=== PATIENT | female | born 2000 | race Caucasian/White ===

== ENCOUNTER → 2018-08-14 | Outpatient (CLI) | payer BC, OTHER | LOC: OD 10:36 | PROVIDERS: ATTEND Family Medicine | DX: J02.9 Acute pharyngitis, unspecified (principal) | CPT/HCPCS: 87070; 87880 ==

== ENCOUNTER 2018-09-09 07:46 | Day surgery (SDC) | payer BC, OTHER ==
[~2018-09-09 07:46] MED LIST: AMPICILLIN SOD INJ 1 GM VIAL IV PRN; OXYMETAZOLINE HCL 0.05% NASAL SPRAY 15 ML BOTTLE ONE
[2018-09-09] MEDS ORDERED: AMPICILLIN SOD INJ 1 GM VIAL ONE (07:52)
[2018-09-09] MEDS ORDERED: WATER FOR INJECTION,STERILE 10 ML SDV ONE (08:10)
[2018-09-09] MEDS ORDERED: AMPICILLIN SODIUM 2 GM in NORMAL SALINE 100 ML IV PRN (08:14)
[2018-09-09] MEDS ORDERED: MIDAZOLAM 2 MG/2 ML INJ ONE (08:27)
[2018-09-09] MEDS ORDERED: ONDANSETRON HCL INJ/PF 4 MG/2 ML SDV ONE (08:27)
[2018-09-09] MEDS ORDERED: ACETAMINOPHEN 1,000 MG/100 ML RTUPB IV ONE (08:28)
[2018-09-09] MEDS ORDERED: SUCCINYLCHOLINE CHLORIDE INJ 200 MG/10 ML VIAL ONE (08:28)
[2018-09-09] MEDS ORDERED: PROPOFOL INJ 200 MG/20 ML VIAL IV ONE (08:28)
[2018-09-09] MEDS ORDERED: HYDROMORPHONE HCL INJ/PF 2 MG/ML AMPULE ONE (08:28)
[2018-09-09] MEDS ORDERED: DEXAMETHASONE SOD PHOS INJ 10 MG/1 ML VIAL ONE (08:28)
--- NOTE | 2018-09-09 08:33 | EKG REPORT ---
SEVERITY:- NORMAL ECG - SINUS RHYTHM : Confirmed by: German Matute 09-Sep-2018 08:32:34
--- NOTE | 2018-09-09 09:37 | SURGICARE OPERATIVE REPORT E ---
[facility] Operative Report NAME: ROSA NEWTON AGE: 17Y DATE OF SURGERY: 09/09/2018 ROOM: HISTORY: A 17-year-old female with a history of chronic tonsillitis. She presents today for a tonsillectomy. Informed consent was obtained from the patient. PREOPERATIVE DIAGNOSIS: CHRONIC TONSILLITIS. POSTOPERATIVE DIAGNOSIS: CHRONIC TONSILLITIS. OPERATION: Tonsillectomy. SURGEON: TRACEY MARTINEZ MD ANESTHESIA: General by endotracheal intubation. DESCRIPTION OF PROCEDURE: After receiving informed consent from the patient, she was taken to the operating room and placed supine on the operating table. After successful induction and intubation by Anesthesia the patient was then turned 90-degrees and placed in Trendelenburg. Shoulder roll placed, head drape placed, McIvor mouth gag inserted atraumatically into the oral cavity. This was then opened up. The soft palate was palpated and found to be normal. Red catheters inserted down each nasal cavity bilaterally to elevate the soft palate. Right tonsil was grasped with a tonsil tenaculum, pulled medially, dissected free from its tonsillar fossa using Bovie electrocautery. A similar procedure was done on the left side. Both tonsils were removed. Next, hemostasis was obtained with suction and Bovie electrocautery. Next, the oral cavity, oropharynx were irrigated with copious amounts of normal saline. No bleeding was noted. An orogastric tube inserted into stomach. Gastric contents were aspirated. The McIvor mouth gag was then let down and reopened, no bleeding was noted. This along with along with red catheters were removed from the patient. Patient given back to anesthesia, successfully extubated. Patient without complications. Estimated blood loss is 10 mL. Fluids about 500 mL crystalloid. Patient was then transferred to the postanesthesia care unit in stable condition with spontaneous respiration and no complication. DICTATING PHYSICIAN: TRACEY MARTINEZ M.D. [id number] PHY#: [id number] ID: [id number] JOB#: [id number] ACCT: [id number] cc:TARCEY MARTINEZ MD >
== END 2018-09-09 10:30 | disposition home or self-care (01) ==
LOC: SC 07:46
PROVIDERS: ATTEND Otolaryngology
DX: J35.01 Chronic tonsillitis (principal); J45.909 Unspecified asthma, uncomplicated; I10 Essential (primary) hypertension; Z79.899 Other long term (current) drug therapy; Z79.84 Long term (current) use of oral hypoglycemic drugs; Z79.1 Long term (current) use of non-steroidal anti-inflammatories (NSAID); Z88.8 Allergy status to other drugs, medicaments and biological substances
CPT/HCPCS: 93005; 88304 ×2; 93010; 42826; J0290 ×2; J2250; J1170; J3490; J0330; J2405; J2704; J1100; J0131; 170

== ENCOUNTER 2020-01-18 06:14 | Emergency (ER) | payer BC, MEDICAID, OTHER ==
--- NOTE | 2020-01-18 06:46 | ER Document Report ---
ED GI/ - General Chief Complaint: Vomiting/Diarrhea Stated Complaint: VOMITING/DIARRHEA Time Seen by Provider: 01/18/20 06:40 Primary Care Provider: ENEDELIA JONES MD [Primary Care Provider] - Follow up as needed Mode of Arrival: Ambulatory Information source: Patient Notes: 19-year-old woman presents to the emergency department complaint of nausea vomiting and diarrhea which began early this morning. She states that she had been feeling fine yesterday does not know of any precipitating factors. No prior history of GI problems and otherwise healthy 19-year-old with the exception of asthma. She has not taken any medications complains of cramping abdominal pain and nausea at this time. She has been afebrile and denies any hematemesis or hematochezia. TRAVEL OUTSIDE OF THE [place] IN LAST 30 DAYS: No - Related Data Allergies/Adverse Reactions: montelukast [From Singulair] Allergy (Verified 09/05/18 10:52) Hives prednisone Adverse Reaction (Verified 01/18/20 06:54) Past Medical History - General Information source: Patient - Social History Smoking Status: Never Smoker Family History: Reviewed & Not Pertinent Patient has suicidal ideation: No Patient has homicidal ideation: No - Past Medical History Cardiac Medical History: Reports: Hx Hypertension Denies: Hx Heart Attack Pulmonary Medical History: Denies: Hx Asthma Neurological Medical History: Denies: Hx Cerebrovascular Accident, Hx Seizures GI Medical History: Denies: Hx Hepatitis, Hx Hiatal Hernia, Hx Ulcer Infectious Medical History: Denies: Hx Hepatitis Past Surgical History: Denies: Hx Hysterectomy, Hx Mastectomy, Hx Open Heart Surgery, Hx Pacemaker Review of Systems - Review of Systems Notes: Constitutional: Negative for fever. HENT: Negative for sore throat. Eyes: Negative for visual changes. Cardiovascular: Negative for chest pain. Respiratory: Negative for shortness of breath. Gastrointestinal: + Cramping abdominal pain, +vomiting, +diarrhea. Genitourinary: Negative for dysuria. Musculoskeletal: Negative for back pain. Skin: Negative for rash. Neurological: Negative for headaches, weakness or numbness. 10 point ROS negative except as marked above and in HPI. Physical Exam - Vital signs Vitals: Temp Pulse Resp BP Pulse Ox 98.1 F 117 H 16 143/85 H 99 01/18/20 06:23 01/18/20 06:23 01/18/20 06:23 01/18/20 06:23 01/18/20 06:23 - Notes Notes: PHYSICAL EXAMINATION: Physical Exam: General: Well-nourished emen-vzbpqrsyl-ckod-old female in no acute distress HEENT: NC/AT, pupils equal round and reactive to light, MM moist,nares clear, oropharynx clear, airway patent Neck: supple, no adenopathy, no masses. Good range of motion Lungs: clear, no wheezing, no rales no rhonchi CVS: Regular rate and rhythm no murmur gallop or rub Abdomen: Soft, active, mild mid periumbilical tenderness, no guarding, no rebound, no masses, no hepatosplenomegaly Ext: No edema, clubbing or cyanosis. Neuro: Alert and responsive, moving all 4 extremities on command, cranial nerves intact, no focal findings Skin: Intact no open lesions, no rash PSYCH: Normal mood, normal affect. Course - Re-evaluation Re-evalutation: 01/18/20 09:23 19-year-old woman history of nausea vomiting diarrhea x1 day. She is given IV normal saline, Zofran and Toradol. Symptoms are markedly improved patient is no w taking oral liquids without difficulty. She is being discharged home with a viral enteritis and told to continue to push fluids use Zofran for nausea and avoid taking medications for diarrhea. Patient acknowledges an understanding of this plan and is being discharged at this time. - Vital Signs Vital signs: Temp Pulse Resp BP Pulse Ox 98.5 F 90 16 124/70 100 01/18/20 09:35 01/18/20 09:35 01/18/20 09:35 01/18/20 09:35 01/18/20 09:35 - Laboratory Result Diagrams: 01/18/20 07:02 01/18/20 07:02 Laboratory results interpreted by me: 01/18/20 01/18/20 01/18/20 07:02 07:02 08:30 Hgb 10.8 L Hct 33.6 L MCV 72 L MCH 22.9 L RDW 19.6 H Seg Neuts % (Manual) 93 H Band Neutrophils % 1 L Lymphocytes % (Manual) 1 L Abs Neuts (Manual) 9.6 H Abs Lymphs (Manual) 0.1 L Chloride 109 H Glucose 120 H Urine Ketones 80 H I have reviewed laboratory data and used this information for the treatment decisions regarding the patient. Discharge - Discharge Clinical Impression: Viral enteritis, Nausea vomiting and diarrhea Condition: Good Disposition: HOME, SELF-CARE Instructions: Antinausea Medication ([facility]), Diarrhea, Nonspecific ([facility]), Vomiting ([facility]) Additional Instructions: You are diagnosed with viral enteritis, please use the Zofran for nausea, push fluids, avoid heavy foods, meats, fried foods, dairy until the diarrhea has resolved. Follow-up with your primary care doctor as needed, return to the emergency department if your symptoms are worsening or if you have other concerns. HOME CARE INSTRUCTIONS & INFORMATION: Thank you for choosing us for your medical needs. We hope you're satisfied with the care you received. After you leave, you must properly care for your problem and, at the same time, observe its progress. Any condition can change. Some illnesses can change rapidly over hours or days. If your condition worsens, return to the Emergency Department or see your physician promptly. ABOUT YOUR X-RAYS AND EKG'S: If you had an EKG or X-rays taken, they have been read by the Emergency Physician. The X-rays and EKG's will also be read by a Radiologist or Cvor Nurse within 24 hours. If discrepancies are noted, you will be notified by telephone. Please be certain the ED has a correct telephone number & address where you can be reached. Also, realize that some fractures or abnormalities do not show up on initial X-rays. If your symptoms continue, see your physician. ABOUT YOUR LABORATORY TEST: If you had laboratory tests, the results have been reviewed by the Emergency Physician. Some test results (for example cultures) may not be available for several days. You will be contacted if any test result shows you need additional treatment. Please be certain the ED has a correct telephone number and address where you can be reached. ABOUT YOUR MEDICATIONS: You will receive instructions on how to take your medicine on the prescription label you receive. Additional information may be provided by the Pharmacy. If you have questions afterwards, call the ED for clarification or further instructions. Some prescribed medications may cause drowsiness. Do not perform tasks such as driving a car or operating machinery without consulting your Pharmacist. If you feel you need a refill of pain medication, your condition will need re-evaluation. Please do not call for a re fill of any medication. ABOUT YOUR SIGNATURE: Signature of this document acknowledges to followin. Understanding that you received emergency treatment and that you may be released before al medical problems are known or treated. Please be certain the ED has a correct phone number & address where you can be reached. 2. Acknowledgement that you will arrange for follow-up care as recommended. 3. Authorization for the Emergency Physician to provide information to your follow-up Physician in order to maximize your care. AT ANY TIME, IF YOUR SYMPTOMS CHANGE SIGNIFICANTLY OR WORSEN OR YOU DEVELOP NEW SYMPTOMS, RETURN TO THE EMERGENCY DEPARTMENT IMMEDIATELY FOR RE-EVALUATION. OUR GOAL IS TO PROVIDE EXCELLENT MEDICAL CARE! WE HOPE THAT WE HAVE MET YOUR EXPECTATIONS DURING YOUR EMERGENCY DEPARTMENT VISIT AND THAT YOU FEEL YOU HAVE RECEIVED EXCELLENT CARE! Prescriptions: Ondansetron [Zofran Odt 4 mg Tablet] 1 - 2 tab PO Q4H PRN #15 tab.rapdis PRN Reason: For Nausea/Vomiting Referrals: ENEDELIA JONES MD [Primary Care Provider] - Follow up as needed
[2020-01-18] MEDS ORDERED: NORMAL SALINE 1000 ML 1,000 ML IV ONE (06:48)
[2020-01-18] MEDS ORDERED: ONDANSETRON HCL INJ/PF 4 MG/2 ML SDV IV ONE (06:49)
[2020-01-18] MEDS ORDERED: KETOROLAC TROMETHAMINE INJ/PF 30 MG/1 ML SDV IV ONE (06:49)
[2020-01-18 07:44] LABS: ALKALINE PHOSPHATASE 69 U/L (38-126); ANION GAP 6 (5-19); ASPARTATE AMINO TRANSFERASE 17 U/L (14-36); BILIRUBIN,TOTAL 0.5 mg/dL (0.2-1.3); BLOOD UREA NITROGEN 13 mg/dL (7-20); CALCIUM 8.5 mg/dL (8.4-10.2); CARBON DIOXIDE 24 mmol/L (22-30); CHLORIDE 109 mmol/L (98-107); GLUCOSE 120 mg/dL (75-110); TOTAL PROTEIN 7.1 g/dL (6.3-8.2)
[2020-01-18 07:51] LABS: HEMATOCRIT 33.6 % (36.0-47.0); HEMOGLOBIN 10.8 g/dL (12.0-15.5); MEAN CORPUSCULAR HEMOGLOBIN 22.9 pg (27.0-33.4); MEAN CORPUSCULAR VOLUME 72 fl (80-97); PLATELET COUNT 190 10^3/uL (150-450); RED BLOOD COUNT 4.69 10^6/uL (3.72-5.28); RED CELL DISTRIBUTION WIDTH 19.6 % (11.5-14.0); WHITE BLOOD COUNT 10.2 10^3/uL (4.0-10.5)
[2020-01-18 07:57] LABS: ABSOLUTE LYMPHOCYTES# (MANUAL) 0.1 10^3/uL (0.5-4.7); ABSOLUTE MONOCYTES # (MANUAL) 0.5 10^3/uL (0.1-1.4); BAND NEUTROPHILS % (MANUAL) 1 % (3-5); BASOPHILS % (MANUAL) 0 % (0-2); EOSINOPHILS % (MANUAL) 0 % (0-6); LYMPHOCYTES % (MANUAL) 1 % (13-45); MONOCYTES % (MANUAL) 5 % (3-13); SEGMENTED NEUTROPHILS % (MAN) 93 % (42-78); TOTAL CELLS COUNTED 100
[2020-01-18 07:58] LABS: ANISOCYTOSIS 2+; OVALOCYTES SLIGHT; PLATELET COMMENT ADEQUATE; TEAR DROP CELLS SLIGHT; TOXIC GRANULATION SLIGHT; TOXIC VACUOLATION PRESENT
[2020-01-18 08:46] LABS: APPEARANCE,URINE SLIGHTLY-CLOUDY; BILIRUBIN,URINE NEGATIVE (NEGATIVE); COLOR,URINE YELLOW; GLUCOSE, URINE NEGATIVE (NEGATIVE); KETONES,URINE 80 mg/dL (NEGATIVE); LEUKOCYTE ESTERASE,URINE NEGATIVE (NEGATIVE); NITRITE,URINE NEGATIVE (NEGATIVE); PROTEIN,URINE NEGATIVE (NEGATIVE); URINE SPECIFIC GRAVITY 1.021; UROBILINOGEN,URINE NEGATIVE mg/dL (<2.0)
[2020-01-18 09:40] VITALS: BP 124/70
[2020-01-18 13:00] LABS: AMYLASE 40 U/L (30-110)
== END 2020-01-18 09:40 | disposition home or self-care (01) ==
LOC: ER 06:14
DX: A08.4 Viral intestinal infection, unspecified (principal); R19.7 Diarrhea, unspecified; R11.2 Nausea with vomiting, unspecified; R10.9 Unspecified abdominal pain; I10 Essential (primary) hypertension
CPT/HCPCS: 99284; 96361; 96374; 96375; 36415; 82150; 83690; 85025; 80053; 81001; J1885; J2405; J7030

== ENCOUNTER 2020-08-30 12:25 | Outpatient (CLI) | payer MEDICAID ==
[2020-08-30 13:30] LABS: APPEARANCE,URINE CLOUDY; BILIRUBIN,URINE NEGATIVE (NEGATIVE); COLOR,URINE YELLOW; GLUCOSE, URINE NEGATIVE (NEGATIVE); KETONES,URINE NEGATIVE (NEGATIVE); LEUKOCYTE ESTERASE,URINE MODERATE (NEGATIVE); NITRITE,URINE NEGATIVE (NEGATIVE); PROTEIN,URINE 30 mg/dL (NEGATIVE); UROBILINOGEN,URINE NEGATIVE mg/dL (<2.0)
[2020-08-30 13:46] LABS: ABSOLUTE LYMPHOCYTES (AUTO) 1.2 10^3/uL (0.5-4.7); ABSOLUTE MONOCYTES (AUTO) 0.4 10^3/uL (0.1-1.4); ABSOLUTE NEUT (AUTO) 6.6 10^3/uL (1.7-8.2); BASOPHILS % (AUTO) 0.2 % (0-2); EOSINOPHILS % (AUTO) 0.5 % (0-6); HEMATOCRIT 32.3 % (36.0-47.0); HEMOGLOBIN 10.7 g/dL (12.0-15.5); LYMPHOCYTES % (AUTO) 14.7 % (13-45); MEAN CORPUSCULAR HEMOGLOBIN 25.6 pg (27.0-33.4); MEAN CORPUSCULAR VOLUME 78 fl (80-97); MONOCYTES % (AUTO) 4.5 % (3-13); PLATELET COUNT 177 10^3/uL (150-450); RED BLOOD COUNT 4.17 10^6/uL (3.72-5.28); RED CELL DISTRIBUTION WIDTH 21.5 % (11.5-14.0); SEGMENTED NEUTROPHILS % (AUTO) 80.1 % (42-78); TOTAL CELLS COUNTED % (AUTO) 100 %; WHITE BLOOD COUNT 8.2 10^3/uL (4.0-10.5)
[2020-08-30 14:02] LABS: ALBUMIN 3.1 g/dL (3.5-5.0); ALKALINE PHOSPHATASE 95 U/L (38-126); ANION GAP 10 (5-19); ASPARTATE AMINO TRANSFERASE 18 U/L (14-36); BILIRUBIN,DIRECT 0.2 mg/dL (0.0-0.4); BILIRUBIN,TOTAL 0.4 mg/dL (0.2-1.3); BLOOD UREA NITROGEN 7 mg/dL (7-20); CALCIUM 8.7 mg/dL (8.4-10.2); CARBON DIOXIDE 20 mmol/L (22-30); CHLORIDE 107 mmol/L (98-107); GLUCOSE 125 mg/dL (75-110); POTASSIUM 3.5 mmol/L (3.6-5.0); URIC ACID 4.7 mg/dL (2.5-6.2)
[2020-08-30 14:07] LABS: URINE AMPHETAMINES SCREEN NEGATIVE; URINE BARBITURATES SCREEN NEGATIVE; URINE BENZODIAZEPINES SCREEN NEGATIVE; URINE COCAINE SCREEN NEGATIVE; URINE METHADONE SCREEN NEGATIVE; URINE PHENCYCLIDINE SCREEN NEGATIVE
[2020-08-30 14:11] LABS: UR PRO/CREAT RATIO RESULT 0.1 mg/mg (0.0-0.2); URINE CREATININE 238.3 mg/dL (16-327); URINE MARIJUANA (THC) SCREEN NEGATIVE; URINE PROTEIN 15.5 mg/dL (<12)
--- NOTE | 2020-08-30 14:42 | Non Stress Test Report ---
Non Stress Test Datetime Report Generated by CPN: 08/30/2020 14:41 DEMOGRAPHIC EGA NST: 37.0 INDICATION Indication for Study (NST) Other: IUP at 37.0 VITAL SIGNS Temperature - NST: 98.9 Pulse - NST: 73 RESP - NST: 18 NBPSYS NST: 129 NBPDIA NST: 59 MONITORING Monitor Explained: Monitor Explained; Test Explained; Patient Verbalized Understanding Time on Monitor: 08/30/2020 12:39 Time off Monitor: 08/30/2020 14:30 NST Duration: 111 NST INTERVENTIONS NST Interventions: PO Hydration Physician Notified NST: A. Zafar, CNM BABY A: [id number] BABY A Movement : Present Contraction Frequency : x1 FHR Baseline : 135 Accelerations : 15X15 Decelerations : None Variability : Moderate 6-25bpm NST Review: Meets Criteria for Reactive NST NST Review and Verified By : Jason RN NST Results: Reactive NST REPORT Report Trigger: Send Report
== END 2020-08-30 14:42 | disposition home or self-care (01) ==
LOC: LC 12:25
PROVIDERS: ATTEND Obstetrics & Gynecology
DX: O16.3 Unspecified maternal hypertension, third trimester (principal); Z3A.37 37 weeks gestation of pregnancy
CPT/HCPCS: 36415; 59025; 80053; 80307; 81005; 82570; 83615; 84156; 84550; 85025; 87086

== ENCOUNTER 2020-09-05 20:26 | Inpatient (IN) | payer MEDICAID ==
[2020-09-05] MEDS ORDERED: RINGERS SOLUTION,LACTATED 1,000 ML IV PRN (20:41)
[2020-09-05] MEDS ORDERED: ZOLPIDEM TARTRATE 5 MG TABLET PO PRN (20:41)
[2020-09-05] MEDS ORDERED: MAG HYDROX/AL HYDROX/SIMETH SUSP 30 ML UDCUP PO PRN (20:41)
[2020-09-05] MEDS ORDERED: DINOPROSTONE 10 MG VAGINAL INSERT.SR PV ONE (20:41)
[2020-09-05] MEDS ORDERED: ACETAMINOPHEN 325 MG TABLET PO PRN (20:41)
[2020-09-05] MEDS ORDERED: RINGERS SOLUTION,LACTATED 300 ML IV ONE (20:41)
[2020-09-05 21:10] LABS: ABSOLUTE LYMPHOCYTES (AUTO) 1.3 10^3/uL (0.5-4.7); ABSOLUTE MONOCYTES (AUTO) 0.5 10^3/uL (0.1-1.4); ABSOLUTE NEUT (AUTO) 7.7 10^3/uL (1.7-8.2); BASOPHILS % (AUTO) 0.3 % (0-2); EOSINOPHILS % (AUTO) 0.2 % (0-6); HEMATOCRIT 32.3 % (36.0-47.0); HEMOGLOBIN 11.1 g/dL (12.0-15.5); LYMPHOCYTES % (AUTO) 13.3 % (13-45); MEAN CORPUSCULAR HEMOGLOBIN 26.2 pg (27.0-33.4); MEAN CORPUSCULAR HGB CONC 34.4 g/dL (32.0-36.0); MEAN CORPUSCULAR VOLUME 76 fl (80-97); MONOCYTES % (AUTO) 5.7 % (3-13); PLATELET COUNT 180 10^3/uL (150-450); RED BLOOD COUNT 4.24 10^6/uL (3.72-5.28); SEGMENTED NEUTROPHILS % (AUTO) 80.5 % (42-78); TOTAL CELLS COUNTED % (AUTO) 100 %; WHITE BLOOD COUNT 9.6 10^3/uL (4.0-10.5)
[2020-09-05 21:20] LABS: APPEARANCE,URINE CLOUDY; BILIRUBIN,URINE NEGATIVE (NEGATIVE); CALCIUM OXALATE CRYSTALS,URINE MODERATE /HPF; COLOR,URINE AMBER; GLUCOSE, URINE NEGATIVE (NEGATIVE); KETONES,URINE TRACE mg/dL (NEGATIVE); LEUKOCYTE ESTERASE,URINE LARGE (NEGATIVE); NITRITE,URINE NEGATIVE (NEGATIVE); PROTEIN,URINE 100 mg/dL (NEGATIVE); URINE SPECIFIC GRAVITY 1.031; UROBILINOGEN,URINE NEGATIVE mg/dL (<2.0)
[2020-09-05 21:29] LABS: URINE AMPHETAMINES SCREEN NEGATIVE; URINE BARBITURATES SCREEN NEGATIVE; URINE BENZODIAZEPINES SCREEN NEGATIVE; URINE COCAINE SCREEN NEGATIVE; URINE MARIJUANA (THC) SCREEN NEGATIVE; URINE METHADONE SCREEN NEGATIVE; URINE PHENCYCLIDINE SCREEN NEGATIVE
[2020-09-05] MEDS ORDERED: DINOPROSTONE 10 MG VAGINAL INSERT.SR ONE (22:08)
--- NOTE | 2020-09-06 04:35 | Admission Physical ---
Datetime Report Generated by CPN: 09/06/2020 04:35 CURRENT ADMISSION Hx Assessment: The History has been Reviewed and is Current Chief Complaint: Scheduled Induction of Labor Admit Impression : Term, Intrauterine Admit Plan: Admit to Unit; Initiate Labor Induction Protocol ALLERGIES Medication Allergies: Yes Medication Allergies: prednisone (09/05/2020); montelukast/Hives (09/05/2020) Latex: No Latex Allergies Food Allergies: none Environmental Allergies: none OBSTETRICAL HISTORY EDC: 09/20/2020 00:00 : 1 Para: 0 Term: 0 : 0 SAB: 0 IAB: 0 Livin Gestational Diabetes: No Rh Sensitization: No Incompetent Cervix: No TAMELA: No Infertility: No ART Treatment: No Uterine Anomaly: No IUGR: No Hx Previous C/S: No Macrosomia: No Hx Loss/Stillborn: No PIH: No Hx : No Placenta Previa/Abruption: No Depression/PP Depression: No PTL/PROM: No Post Hemorrhage: No Current Procedures: Ultrasound; NST Obstetrical History Comments: G1- Current SEE RECORDS Alcohol: No Marijuana : No Cocaine: No Other Illicit Drugs: No Cigarettes: Never Smoker. [id number] Advised to Stop: No MEDICAL HISTORY Diabetes: No Blood Transfusion: No Pulmonary Disease (Asthma, TB): Yes Breast Disease: No Hypertension: Yes Assembler Tester Surgery: No Heart Disease: No Hosp/Surgery: Yes Autoimmune Disorder: No Anesthetic Complications: No Kidney Disease: No Abnormal Pap Smear: No Neuro/Epilepsy: No Psychiatric Disorders: No Other Medical Diseases: No Hepatitis/Liver Disease: No Significant Family History: No Varicosities/Phlebitis: No Trauma/Violence : No Thyroid Dysfunction: No Medical History Comments: childhood asthma, tonsillectomy and wisdom teeth INFECTIOUS HISTORY Gonorrhea: No Genital Herpes: No Chlamydia: No Tuberculosis: No Syphilis: No Hepatitis: No HIV/AIDS Exposure: No Rash or Viral Illness: No HPV: No PHYSICAL EXAM General: Normal HEENT: Normal Neurologic: Normal Thyroid: Normal Heart: Normal Lungs: Normal Breast: Normal Back: Normal Abdomen: Normal Genitourinary Exam: Normal Extremities: Normal DTRs: Normal Pelvic Type: Adequate Vital Signs: Reviewed Details Vital Signs: mildly elevated b/p VAGINAL EXAM Dilatation: 0 Effacement: 0 Station: -3 Contraction Comments: regular contractions MEMBRANES Membranes: Intact FETUS A EGA: 38.0 Monitoring: External US FHR- Baseline: 125 Variability: Moderate 6-25bpm Accelerations: 15X15 Decelerations: None FHR Category: Category I Presentation: Vertex Admit Comment: G1 at 38.0 wks EGA for IOL d/t cHTN -admit to LDR -NPO and IVFs: LR at 125 cc/hr after bolus of 1 liter -CEFM and toco -GBS positive , PCN ordered -Desires epidural in labor -anticipate PLANS FOR LABOR AND DELIVERY Labor and Delivery: None Feeding Preference: Formula Benefit of Breast Feed Discussed: Yes Circumcision: N/A INFORMED CONSENT Informed Consent Obtained: Vaginal Delivery; Section Delivery; Induction of Labor; Vacuum/Forceps Assist; Risks, Benefits and Alternatives Discussed Signature: with User ID: [email or web address] : with User ID: [email or web address]
--- NOTE | 2020-09-06 08:50 | L&D Progress Notes ---
PROGRESS NOTES Datetime Report Generated by CPN: 09/06/2020 08:50 PROGRESS NOTE Informed Consent Obtained: Vaginal Delivery; Section Delivery; Induction of Labor; Vacuum/Forceps Assist; Risks, Benefits and Alternatives Discussed Vital Signs : Reviewed; Within Normal Limits Comment: Cat 1 strip, irregular uc's, vs stble, continue to momitor and remove cervidil after 12 hours VAGINAL EXAM Dilatation: 0 Effacement: 0 Station: -3 Contractions: regular contractions LAST VAGINAL EXAM-NURSING Nursing Exam Dilitation: closed Nursing Exam Effacement: thick Nursing Exam Station: high MEMBRANES Membranes: Intact FETUS A : 38.0 Presentation: Vertex SIGNATURE SIGNATURE: [id number] Assignment: Abigail Love MD Signature: with User ID: [email or web address] : with User ID: [email or web address]
[2020-09-06] MEDS ORDERED: OXYTOCIN/0.9 % SODIUM CHLORIDE 30 UNIT/500 ML RTUINJ ONE (12:01)
[2020-09-06] MEDS: OXYTOCIN/0.9 % SODIUM CHLORIDE 30 UNIT/500 ML RTUINJ IV PRN (12:17)
[2020-09-06] MEDS ORDERED: LABETALOL HCL INJ 20 MG/4 ML DISP.SYRIN IV ONE ×2 (16:49→16:52)
[2020-09-06] MEDS ORDERED: DINOPROSTONE 10 MG VAGINAL INSERT.SR PV ONE (19:11)
[2020-09-06] MEDS ORDERED: LABETALOL HCL 200 MG TABLET PO SCH (19:15)
[2020-09-06] MEDS ORDERED: DINOPROSTONE 10 MG VAGINAL INSERT.SR ONE (19:56)
[2020-09-06] MEDS ORDERED: LABETALOL HCL 200 MG TABLET ONE (19:56)
[2020-09-07 09:14] LABS: ABSOLUTE EOSINOPHILS # (AUTO) 0.1 10^3/uL (0.0-0.6); ABSOLUTE LYMPHOCYTES (AUTO) 1.6 10^3/uL (0.5-4.7); ABSOLUTE MONOCYTES (AUTO) 0.6 10^3/uL (0.1-1.4); ABSOLUTE NEUT (AUTO) 7.8 10^3/uL (1.7-8.2); BASOPHILS % (AUTO) 0.3 % (0-2); EOSINOPHILS % (AUTO) 0.5 % (0-6); HEMATOCRIT 33.9 % (36.0-47.0); HEMOGLOBIN 11.2 g/dL (12.0-15.5); LYMPHOCYTES % (AUTO) 16.2 % (13-45); MEAN CORPUSCULAR HEMOGLOBIN 25.7 pg (27.0-33.4); MEAN CORPUSCULAR VOLUME 78 fl (80-97); MONOCYTES % (AUTO) 5.5 % (3-13); PLATELET COUNT 189 10^3/uL (150-450); RED BLOOD COUNT 4.36 10^6/uL (3.72-5.28); RED CELL DISTRIBUTION WIDTH 21.7 % (11.5-14.0); SEGMENTED NEUTROPHILS % (AUTO) 77.5 % (42-78); TOTAL CELLS COUNTED % (AUTO) 100 %
[2020-09-07 09:23] LABS: ALBUMIN 3.1 g/dL (3.5-5.0); ALKALINE PHOSPHATASE 105 U/L (38-126); ANION GAP 9 (5-19); ASPARTATE AMINO TRANSFERASE 20 U/L (14-36); BILIRUBIN,DIRECT 0.2 mg/dL (0.0-0.4); BILIRUBIN,TOTAL 0.4 mg/dL (0.2-1.3); BLOOD UREA NITROGEN 6 mg/dL (7-20); CALCIUM 8.9 mg/dL (8.4-10.2); CARBON DIOXIDE 21 mmol/L (22-30); CHLORIDE 107 mmol/L (98-107); GLUCOSE 95 mg/dL (75-110); POTASSIUM 3.9 mmol/L (3.6-5.0); TOTAL PROTEIN 6.2 g/dL (6.3-8.2); URIC ACID 4.4 mg/dL (2.5-6.2)
[2020-09-07 10:24] LABS: URINE PROTEIN 20.5 mg/dL (<12)
[2020-09-07 10:39] LABS: URINE CREATININE 415.6 mg/dL (16-327)
[2020-09-07] MEDS ORDERED: LABETALOL HCL 200 MG TABLET ONE ×2 (11:01→17:10)
[2020-09-07] MEDS: LABETALOL HCL 200 MG TABLET PO SCH ×2 (11:05→11:06)
[2020-09-07] MEDS ORDERED: ONDANSETRON HCL INJ/PF 4 MG/2 ML SDV IV ONE (11:52)
[2020-09-07] MEDS ORDERED: ONDANSETRON HCL INJ/PF 4 MG/2 ML SDV ONE (11:52)
[2020-09-07] MEDS: OXYTOCIN/0.9 % SODIUM CHLORIDE 30 UNIT/500 ML RTUINJ IV PRN (12:45)
--- NOTE | 2020-09-07 13:12 | L&D Progress Notes ---
PROGRESS NOTES Datetime Report Generated by CPN: 09/07/2020 13:11 PROGRESS NOTE Impression Other: IUP @38w1d- IOL secondary to CHTN Procedures: Sterile Vag Exam Procedures- Other: cook's catheter insertion Plan: Continue Present Management; Induction Informed Consent Obtained: Induction of Labor; Risks, Benefits and Alternatives Discussed Vital Signs : Reviewed Vital Signs Comments: normal-severe range will give IV antihypertensives as needed Comment: S: comfortable, denies any concerns at this time, agreeable to cook's catheter, day 2 induction O: cat I tracing, pressures as stated, stable A: IUP @ 39w1d IOL secondary to CHTN Cook's catheter insertion- pt tolerated well P: continue present plan with cook's and pitocin, will reasses as clinically indicated, consider increasing po labetalol and IV antyhypertensives at this time VAGINAL EXAM Dilatation: 0 Effacement: 0 Station: -3 Contractions: rare LAST VAGINAL EXAM-NURSING Nursing Exam Dilitation: 2.0 Nursing Exam Effacement: 50 Nursing Exam Station: -2 MEMBRANES Membranes: Intact FETUS A Monitoring: External US Decelerations: None FHR Category: Cat I-II : 38.0 Presentation: Vertex SIGNATURE SIGNATURE: [id number] Assignment: Aicha Cabrera MD Signature: with User ID: [email or web address] : with User ID: [email or web address]
[2020-09-07] MEDS ORDERED: PENICILLIN G-K 5 MILLION UNIT VIAL ONE ×2 (16:56→21:38)
[2020-09-07] MEDS ORDERED: OXYTOCIN 10 UNIT/ML VIAL ONE (16:57)
[2020-09-07] MEDS ORDERED: MISOPROSTOL 0.2 MG TABLET ONE (16:57)
[2020-09-07] MEDS ORDERED: OXYTOCIN/0.9 % SODIUM CHLORIDE 30 UNIT/500 ML RTUINJ ONE (16:57)
[2020-09-07] MEDS ORDERED: LIDOCAINE 1% INJ-PF (10 MG/ML) 30 ML SDV ONE (16:57)
[2020-09-07] MEDS ORDERED: LABETALOL HCL 200 MG TABLET PO ONE (17:08)
[2020-09-07] MEDS ORDERED: HYDRALAZINE HCL INJ/PF 20 MG/1 ML SDV ONE (18:11)
[2020-09-07] MEDS ORDERED: HYDRALAZINE HCL INJ/PF 20 MG/1 ML SDV IV ONE (18:17)
[2020-09-07] MEDS ORDERED: EPHEDRINE SULFATE INJ 50 MG/1 ML AMPULE ONE (19:43)
[2020-09-07] MEDS ORDERED: ROPIVACAINE HCL 0.2% INJ/PF (2 MG/ML) 20 ML SDV ONE (19:44)
[2020-09-07] MEDS ORDERED: FENTANYL/BUPIVACAINE/NS/PF 300 MCG/150 ML RTUINJ EPI ONE (19:44)
[2020-09-07] MEDS ORDERED: PROMETHAZINE HCL INJ 25 MG/1 ML VIAL ONE (19:54)
[2020-09-08] MEDS ORDERED: PROMETHAZINE HCL 25 MG SUPP.RECT PR PRN (02:23)
[2020-09-08] MEDS ORDERED: GLYCERIN/WITCH HAZEL LEAF 1 EACH MED..WIPE TP PRN (02:23)
[2020-09-08] MEDS ORDERED: MAGNESIUM HYDROXIDE SUSP 30 ML UDCUP PO PRN (02:23)
[2020-09-08] MEDS ORDERED: PSEUDOEPHEDRINE HCL 30 MG TABLET PO PRN (02:23)
[2020-09-08] MEDS ORDERED: DIPHENHYDRAMINE HCL 25 MG CAPSULE PO PRN (02:23)
[2020-09-08] MEDS ORDERED: MEASLES,MUMPS&RUBELLA VACC/PF 0.5 ML VIAL SUBCUT PRN (02:23)
[2020-09-08] MEDS ORDERED: ZOLPIDEM TARTRATE 5 MG TABLET PO PRN (02:23)
[2020-09-08] MEDS ORDERED: OXYTOCIN/0.9 % SODIUM CHLORIDE 30 UNIT/500 ML RTUINJ IV PRN (02:23)
[2020-09-08] MEDS ORDERED: DIBUCAINE 1% OINTMENT 28 GM TP PRN (02:23)
[2020-09-08] MEDS ORDERED: NA PHOS,M-B/NA PHOS,DI-BA (ADULT) 133 ML ENEMA PR PRN (02:23)
[2020-09-08] MEDS ORDERED: ACETAMINOPHEN 325 MG TABLET PO PRN (02:23)
[2020-09-08] MEDS ORDERED: ACETAMINOPHEN WITH CODEINE #3 TABLET PO PRN ×2 (02:23)
[2020-09-08] MEDS ORDERED: PROMETHAZINE HCL 25 MG TABLET PO PRN (02:23)
[2020-09-08] MEDS ORDERED: DIPH/PERTUSS(ACELL)/TETANUS VAC/PF 0.5 ML SYR (>=10YO) IM PRN (02:23)
[2020-09-08] MEDS ORDERED: PROMETHAZINE HCL INJ 25 MG/1 ML VIAL IV PRN (02:23)
[2020-09-08] MEDS ORDERED: ACETAMINOPHEN 650 MG SUPP.RECT PR PRN (02:23)
[2020-09-08] MEDS ORDERED: BENZOCAINE/MENTHOL AEROSOL SPRAY 56 ML TOP PRN (02:23)
[2020-09-08] MEDS ORDERED: LABETALOL HCL 200 MG TABLET ONE (03:03)
--- NOTE | 2020-09-08 03:35 | Delivery Summary ---
Del Sum A-C Datetime Report Generated by CPN: 09/08/2020 03:35 DELIVERY PERSONNEL DELIVERY PERSONNEL: [id number] Delivery Doctor:: Aicha Cabrera MD Labor and Delivery Nurse:: FELISA Light Nursery Nurse:: Toma Longoria RN Consulting Senior Practice Director/HIGH SCHOOL SOCIAL SCIENCE TEACHER: Gangamarcelino Langford, ACQUISITION SPECIALIST MATERNAL INFORMATION Delivery Anesthesia: Epidural Medications After Delivery: Pitocin 30 Units in 500ml NS/D5W Estimated Blood Loss (ml): 150 Delivery QBL: 201 Maternal Complications: None Provider Comments: called to patients room as she was complete and +3 with urge to push. SHe pushed through one contraction delivering a viable female . The shoulders and rest of the body followed easily. vigorous at time of delivery and cord clamping was delayed for 30 seconds. Infant placed skin to skin with mother after double clamping cord and cutting. Both stable. Fundus was firm but bleeding noted. Bimanual massage done and uterus felt firm but mildly enlarged and hollow. Cleared remaining clots and massaged. Cyototec IA given 1 gm. BLeeding decreased. Fundus still firm. LABOR SUMMARY EDC: 09/20/2020 00:00 No. Babies in Womb: 1 Attempted: No Labor Anesthesia: Intrathecal LABOR INFORMATION Reason for Induction: Chronic Primary/Essential HTN Onset of Labor: 09/08/2020 19:30 Complete Dilatation: 09/08/2020 01:45 Cervical Ripening Agents: Quispe Balloon Oxytocin: Induction Group B Beta Strep: Positive Antibiotics # of Doses: 2 Antibiotics Time of Last Dose: 09/07/2020 21:38 Name of Antibiotic Given: Penicillin Steroids Given: None Reason Steroids Not Administered: Not Applicable MEMBRANES Membranes Rupture Method: Artificial Rupture of Membranes: 09/07/2020 16:15 Length of Rupture (hr): 9.75 Amniotic Fluid Color: Clear Amniotic Fluid Amount: Moderate STAGES OF LABOR Stage 1 hr: -17 Stage 1 min: -45 Stage 2 hr: 0 Stage 2 min: 15 Stage 3 hr: 0 Stage 3 min: 6 Total Time in Labor hr: -17 Total Time in Labor min: -24 VAGINAL DELIVERY Episiotomy: None Laceration #1: Perineal Laceration Extension #1: First Degree Other Laceration: left labial laceration Laceration Repair: Yes Laceration Repair Note: Repaired in a running fashion with 2-0 chromic Sponge Count Correct: Yes Sharps Count Correct: Yes CSECTION DELIVERY Primary Indication: N/A CSection Incision: N/A BABY A INFORMATION Infant Delivery Date/Time: 09/08/2020 02:00 Method of Delivery: Vaginal Nurse Controlled Delivery: No Born in Route : No : N/A Forceps: N/A Vacuum Extraction: N/A Shoulder Dystocia : No PRESENTATION/POSITION BABY A Presentation: Cephalic Cephalic Presentation: Vertex Vertex Position: Left Occipital Anterior Breech Presentation: N/A PLACENTA INFORMATION BABY A Placenta Delivery Time : 09/08/2020 02:06 Placenta Method of Delivery: Spontaneous Placenta Status: Delivered SCORES BABY A Heart Rate 1 min: >100 bpm Resp Effort 1 min: Good Cry Reflex Irritability 1 min: Cough or Sneeze or Pulls Away Muscle Tone 1 min: Active Motion Color 1 min: Blue/Pale Resuscitation Effort 1 min: Tactile Stimulation SCORE 1 MIN: 8 Heart Rate 5 min: >100 bpm Resp Effort 5 min: Good Cry Reflex Irritability 5 min: Cough or Sneeze or Pulls Away Muscle Tone 5 min: Active Motion Color 5 min: Body Twining, Extremities Blue Resuscitation Effort 5 min: Tactile Stimulation SCORE 5 MIN: 9 INFORMATION BABY A Gestational Age at Delivery: 38.2 Gestational Status: Early Term- 37- 38.6 Weeks Outcome : Liveborn Condition : Stable Infant Sex: Female IDENTIFICATION BABY A Verification Date/Time: 09/08/2020 02:13 ID Band Number: [id number] Mother's Name Verified: Yes Infant RN Verifying Infant: Doris LongoriaKYLE/ Fawn Hernandez RN WEIGHT/LENGTH BABY A Infant Birthweight (gm): 3260 Weight (lb): 7 Infant Weight (oz): 3 Length (in): 20.00 Length (cm): 50.80 CORD INFORMATION BABY A No. Cord Vessels: 3 Nuchal Cord : N/A Cord Blood Taken: Yes-For Eval (Mom's Blood Type - or O+) Suction: Mouth ASSESSMENT BABY A Infant Complications: None Physical Findings at Delivery: Molding of the Head Infant Respirations: Appears Normal Skin to Skin: Yes Skin to Skin Time (min): 60 Assisted Living Coordinator/ALS Called : No Infant Care By: Toma Longoria, RN Transferred To: Remains with Mother BABY B INFORMATION : N/A ASSESSMENT BABY B Skin to Skin: Yes SIGNATURES Signature: with User ID: [email or web address] : with User ID: [email or web address]
--- NOTE | 2020-09-08 03:35 | Birth Certificate Data ---
Cert Data Datetime Report Generated by JEZ: 09/08/2020 03:35 CERTIFICATE DATA 47a. Care: Yes (08/30/2020 12:34:Gabi Hernandez RN) 47b. Date of First Visit: 03/10/2020 00:00 (08/30/2020 12:34:Gabi Hernandez RN) 47c. Date of Last Visit: 08/30/2020 00:00 (08/30/2020 12:34:Gabi Hernandez RN) 47d. Number of Visits: 11 (08/30/2020 12:34:Gabi Hernandez RN) 48a. Number of Prev Live Births: 0 (08/30/2020 12:34:Gabi Hernandez RN) 48b. Now Livin (08/30/2020 12:34:Celine Mathur RN) 48c. Live Births Now : 0 (08/30/2020 12:34:QS system process) 48e. Losses: 0 (08/30/2020 12:34:Gabi Hernandez RN) RISK FACTORS IN THIS 49a. Diabetes: No (08/30/2020 12:34:Gabi Hernandez RN) 49b. Hypertension: Yes (08/30/2020 12:34:Gabi Hernandez RN) Type of Hypertension: Chronic (08/30/2020 12:34:Gabi Hernandez RN) 49c. Previous Births: 0 (08/30/2020 12:34:Celine Mathur RN) 49d. Stillborns: No (08/30/2020 12:34:Gabi Hernandez RN) 49d. IUGR: No (08/30/2020 12:34:Gabi Hernandez RN) 49e. Infertility Treatment: No (08/30/2020 12:34:Gabi Hernandez RN) Mother's Height 50b. Height Inches: 70 (08/30/2020 12:52:QS system process) Mother's Weight 51a. Pre- Weight (lbs): 265 (08/30/2020 12:34:Gabi Hernandez RN) 51b. Weight at Delivery (lbs): 297 (09/06/2020 13:36:QS system process) 52. Dt Last Normal Menses Began: 12/02/2019 00:00 (08/30/2020 12:34:Celine Mathur RN) Infections Present/Treated 53a. Gonorrhea: No (08/30/2020 12:34:Gabi Hernandez RN) Results this Hospital Visit : Negative (08/30/2020 12:34:Celine Mathur RN) 53b. Syphilis: No (08/30/2020 12:34:Gabi Hernandez RN) Results this Hospital Visit: NONREACTIVE (09/05/2020 20:56:QS system process) 53c. Chlamydia: No (08/30/2020 12:34:Gabi Hernandez RN) Results this Hospital Visit: Negative (08/30/2020 12:34:Celine Mathur RN) 53d. Hepatitis B: No (08/30/2020 12:34:Gabi Hernandez RN) Results this Hospital Visit: Negative (08/30/2020 12:34:Gabi Hernandez RN) 53e. Hepatitis C: Negative (08/30/2020 12:34:Gabi Hernandez RN) 53h. Mother Tested for HBsAG: Yes (08/30/2020 12:34:Gabi Hernandez RN) 53i. Date Tested: 03/10/2020 00:00 (08/30/2020 12:34:Gabi Hernandez RN) 53j. Test Result: Negative (08/30/2020 12:34:Gabi Hernandez RN) Obstetric Procedures 54a, b, c. Obstetric Procedures: Ultrasound; NST (08/30/2020 12:34:Gabi Hernandez RN) Cigarette Smoking Cigarette Smoking: Never Smoker. [id number] (08/30/2020 12:34:Gabi Hernandez RN) 55a. 3 Months Before Preg - Ci (08/30/2020 12:34:Gabi Hernandez RN) 55a. Packs: 0 (08/30/2020 12:34:Gabi Hernandez RN) 55b. 1st Trimester of Preg- Ci (08/30/2020 12:34:Gabi Hernandez RN) 55b. Packs: 0 (08/30/2020 12:34:Gabi Hernandez RN) 55c. 2nd Trimester of Preg- Ci (08/30/2020 12:34:Gabi Hernandez RN) 55c. Packs: 0 (08/30/2020 12:34:Gabi Hernandez RN) 55d. 3rd Trimester of Preg- Ci (08/30/2020 12:34:Gabi Hernandez RN) 55d. Packs: 0 (08/30/2020 12:34:Gabi Hernandez RN) Onset of Labor 56a. PROM >12 Hrs: 9.75 (08/30/2020 12:34:QS system process) 56b. Precipitous Labor <3 Hrs: -17 (08/30/2020 12:34:QS system process) 56c. Prolonged Labor > 20 Hrs: -17 (08/30/2020 12:34:QS system process) 57a. Induction of Labor: Induction (08/30/2020 12:34:Gabi Hernandez RN) 57a. Induction of Labor: Quispe Balloon (09/07/2020 16:15:Chelsey Pitt RN) 57c. Non-Vertex Presentation A: Vertex (08/30/2020 12:34:Gabi Hernandez RN) 57d. Steroids - Lung Mat: None (08/30/2020 12:34:Gabi Hernandez RN) 57d. Steroids - Lung Mat: Not Applicable (08/30/2020 12:34:Gabi Hernandez RN) 57e. Antibiotics During Labor: 09/07/2020 21:38 (08/30/2020 12:34:Gabi Hernandez RN) 57f. Mat [place] or Temp >100.4: 99.0 (08/30/2020 12:34:Gabi Hernandez RN) 57g. Moderate/Heavy Meconium: Clear (09/07/2020 16:15:Chelsey Pitt RN) 57h. Intolerance of Labor: N/A (08/30/2020 12:34:Gabi Hernandze RN) 57i. Epidural/Spinal Anesthesia: Intrathecal (08/30/2020 12:34:Aicha Cabrera MD) Method of Delivery 58a. Forceps - Unsuccessful A: N/A (08/30/2020 12:34:Gabi Hernandez RN) 58b. Vacuum - Unsuccessful A: N/A (08/30/2020 12:34:Gabi Hernandez RN) 58c. Presentation at 58c. Presentation at - A : Vertex (08/30/2020 12:34:Gabi Hernandez RN) 58c. Presentation at - A : N/A (08/30/2020 12:34:Gabi Hernandez RN) 58c. Presentation at - A : Cephalic (09/06/2020 18:02:Velia Sebastian RN) Final Route and Method of Del 58d. Baby A Route/Delivery: Vaginal (08/30/2020 12:34:Gabi Hernandez RN) 58e. Trial of Labor Attempted: No (08/30/2020 12:34:Gabi Hernandez RN) 58e. Trial of Labor Attempted A: N/A (08/30/2020 12:34:Gabi Hernandez RN) 58e. Trial of Labor Attempted B: N/A (08/30/2020 12:34:Gabi Hernandez RN) Maternal Morbidity 59b. 3rd or 4th Degree Lacs: Perineal (08/30/2020 12:34:Aicha Cabrera, MD) 59b. 3rd or 4th Degree Lacs: left labial laceration (08/30/2020 12:34:Aicha Cabrera, MD) Birthweight Baby A: 3260 (08/30/2020 12:34:Jeanette Elkins RN) 60a. Pounds : 7 (08/30/2020 12:34:QS system process) 60b. Ounces: 3 (08/30/2020 12:34:QS system process) 61. GA at Delivery Baby A: 38.2 (08/30/2020 12:34:Gabi Hernandez RN) : Early Term- 37- 38.6 Weeks (08/30/2020 12:34:QS system process) 62a. 5 Minute Baby A: 9 (08/30/2020 12:34:QS system process)
[2020-09-08] MEDS: IBUPROFEN 800 MG TABLET PO SCH ×4 (05:26→22:26)
[2020-09-08] MEDS: LABETALOL HCL 200 MG TABLET PO SCH ×3 (07:42→22:27)
[2020-09-08] MEDS ORDERED: PRENATAL VITAMIN W DHA CAPSULE PO SCH (10:00)
[2020-09-08] MEDS: SENNOSIDES/DOCUSATE 8.6-50 MG 1 EACH TABLET PO SCH (10:42)
[2020-09-08] MEDS: FERROUS SULFATE 325 MG TABLET PO SCH ×2 (10:42→18:42)
[2020-09-08] MEDS: FAMOTIDINE 20 MG TABLET PO SCH ×2 (10:43→22:27)
[2020-09-08] MEDS: DOCUSATE SODIUM 100 MG CAPSULE PO SCH ×2 (10:43→18:42)
[2020-09-08 13:51] LABS: ABSOLUTE BASOPHILS # (AUTO) 0.1 10^3/uL (0.0-0.2); ABSOLUTE LYMPHOCYTES (AUTO) 1.8 10^3/uL (0.5-4.7); BASOPHILS % (AUTO) 0.5 % (0-2); EOSINOPHILS % (AUTO) 0.2 % (0-6); HEMATOCRIT 26.7 % (36.0-47.0); LYMPHOCYTES % (AUTO) 14.1 % (13-45); MEAN CORPUSCULAR HEMOGLOBIN 26.2 pg (27.0-33.4); MEAN CORPUSCULAR HGB CONC 33.5 g/dL (32.0-36.0); MEAN CORPUSCULAR VOLUME 78 fl (80-97); MONOCYTES % (AUTO) 7.8 % (3-13); PLATELET COUNT 166 10^3/uL (150-450); RED BLOOD COUNT 3.42 10^6/uL (3.72-5.28); RED CELL DISTRIBUTION WIDTH 22.1 % (11.5-14.0); SEGMENTED NEUTROPHILS % (AUTO) 77.4 % (42-78); TOTAL CELLS COUNTED % (AUTO) 100 %; WHITE BLOOD COUNT 12.9 10^3/uL (4.0-10.5)
[2020-09-09] MEDS: IBUPROFEN 800 MG TABLET PO SCH ×3 (05:50→22:19)
[2020-09-09 07:59] LABS: MEAN CORPUSCULAR HEMOGLOBIN 26.3 pg (27.0-33.4); MEAN CORPUSCULAR HGB CONC 33.2 g/dL (32.0-36.0); MEAN CORPUSCULAR VOLUME 79 fl (80-97); PLATELET COUNT 159 10^3/uL (150-450); RED BLOOD COUNT 3.41 10^6/uL (3.72-5.28); RED CELL DISTRIBUTION WIDTH 22.9 % (11.5-14.0); WHITE BLOOD COUNT 12.5 10^3/uL (4.0-10.5)
[2020-09-09] MEDS: DOCUSATE SODIUM 100 MG CAPSULE PO SCH ×2 (09:15→18:08)
[2020-09-09] MEDS: FAMOTIDINE 20 MG TABLET PO SCH ×2 (09:15→22:19)
[2020-09-09] MEDS: SENNOSIDES/DOCUSATE 8.6-50 MG 1 EACH TABLET PO SCH (09:15)
[2020-09-09] MEDS: FERROUS SULFATE 325 MG TABLET PO SCH ×2 (09:15→18:08)
[2020-09-09] MEDS: LABETALOL HCL 200 MG TABLET PO SCH ×2 (09:18→22:22)
--- NOTE | 2020-09-09 10:24 | PDOC PROGRESS REPORT ---
Subjective-OB Progress Note for:: 09/09/20 - PP day #1, doing well, UOB, voiding, O neg/ baby is O+, needs Rhogam PP, rubella immune, Physical Exam (OB) Vital Signs: Temp Pulse Resp BP Pulse Ox 97.9 F 62 17 130/74 H 99 09/09/20 07:27 09/09/20 07:27 09/09/20 07:27 09/09/20 07:27 09/09/20 07:27 Intake & Output 09/08/20 09/09/20 09/10/20 06:59 06:59 06:59 Intake Total 3450 Balance 3450 - General General Appearance: Appears well, Alert In distress: None - PIH/Pre-Eclampsia DTR's: 1 + Clonus: Negative Headache: Absent Epigastric Pain: No Visual Changes: No - Maternal Morbidity 59. Maternal Morbidity (serious complications experinced by the mother associated with labor and delivery: None of the above - Lochia Lochia Amount: Scant < 10 ml Lochia Color: Rubra/Red - Abdomen Description: Firm, Soft Hernia Present: No Fundal Description: Firm, Midline Fundal Height: u/u - u/2 - Respiratory Respiratory Status: No respiratory distress - Abdominal Distension: No distension Tenderness: Nontender - Genitourinary Genitourinary Note: voiding - Extremities Upper extremity: Normal inspection Lower extremities: Normal inspection - Neurological Cognition: Normal Orientation: AAOx4 - Psychological Associated symptoms: Normal affect, Normal mood - Skin Skin Temperature: Warm Skin Moisture: Dry Objective-Diagnostic Laboratory: 09/09/20 07:07 09/07/20 08:42 09/08/20 09/09/20 09/09/20 13:28 07:07 07:07 WBC 12.9 H 12.5 H RBC 3.42 L 3.41 L Hgb 9.0 L D 9.0 L Hct 26.7 L 27.0 L MCV 78 L 79 L MCH 26.2 L 26.3 L MCHC 33.5 33.2 RDW 22.1 H 22.9 H Plt Count 166 159 Seg Neutrophils % 77.4 Blood Type O NEGATIVE Assessment and Plan(PN) - Assessment and Plan (1) Rh negative status during Qualifiers: Trimester: third trimester Qualified Code(s): O26.893 - Other specified related conditions, third trimester; Z67.91 - Unspecified blood type, Rh negative Is this a current diagnosis for this admission?: Yes (2) Normal course Is this a current diagnosis for this admission?: Yes (3) Anemia affecting Qualifiers: Trimester: third trimester Qualified Code(s): O99.013 - Anemia complicating , third trimester Is this a current diagnosis for this admission?: Yes (4) Chronic hypertension affecting Is this a current diagnosis for this admission?: Yes (5) Encounter for induction of labor Is this a current diagnosis for this admission?: Yes - Time Spent with Patient Time with patient: Less than 15 minutes Medications reviewed and adjusted accordingly: Yes - Disposition Anticipated Discharge Disposition: Home, Self Care Anticipated Discharge Timeframe: within 24 hours
[2020-09-10] MEDS: IBUPROFEN 800 MG TABLET PO SCH ×2 (05:24→13:06)
[2020-09-10] MEDS: DOCUSATE SODIUM 100 MG CAPSULE PO SCH (10:09)
[2020-09-10] MEDS: FERROUS SULFATE 325 MG TABLET PO SCH (10:09)
[2020-09-10] MEDS: SENNOSIDES/DOCUSATE 8.6-50 MG 1 EACH TABLET PO SCH (10:10)
[2020-09-10] MEDS: LABETALOL HCL 200 MG TABLET PO SCH (10:10)
[2020-09-10] MEDS: FAMOTIDINE 20 MG TABLET PO SCH (10:10)
--- NOTE | 2020-09-10 10:25 | PDOC DISCHARGE SUMMARY ---
Impression - Admit/DC Date/PCP Admission Date/Primary Care Provider: 09/05/20 20:26 ENEDELIA JONES MD Discharge Date: 09/10/20 - PP Day #2, doing well, no complaints, O negative, needs Rhogam prior to d/c home. denies headache/ blurred vision. Hx CHTN. - Discharge Diagnosis (1) Rh negative status during Is this a current diagnosis for this admission?: Yes (2) Normal course Is this a current diagnosis for this admission?: Yes (3) Anemia affecting Is this a current diagnosis for this admission?: Yes (4) Chronic hypertension affecting Is this a current diagnosis for this admission?: Yes (5) Encounter for induction of labor Is this a current diagnosis for this admission?: Yes (6) Group beta Strep positive Is this a current diagnosis for this admission?: Yes - Additional Information Resuscitation Status: Full Code Discharge Diet: As Tolerated, Regular Discharge Activity: Activity As Tolerated, No Lifting Over 10 Pounds, Pelvic Rest Referrals: ENEDELIA JONES MD [Primary Care Provider] - Prescriptions: Ibuprofen [Motrin 800 mg Tablet] 800 mg PO Q8 #60 tablet Home Medications: Ferrous Gluconate [Iron] 256 mg PO DAILY 08/30/20 Labetalol HCl [Normodyne 200 mg Tablet] 100 mg PO Q12 08/30/20 Prenat 115/Iron Fum/Folic/Dss [ 19 Tablet] 1 tab PO DAILY 08/30/20 Ibuprofen [Motrin 800 mg Tablet] 800 mg PO Q8 #60 tablet 09/10/20 HPI Reason(s) for Admission: Induction of Labor - [facility] Procedures: NST, Ultrasound Intrapartum Procedure(s): Spontaneous Vaginal Delivery Complication(s): Laceration-Periurethral Laceration-Degree: 1st Hospital Course 59. Maternal Morbidity (serious complications experinced by the mother associated with labor and delivery: None of the above Results Laboratory Results: WBC 12.5 10^3/uL (4.0-10.5) H 09/09/20 07:07 RBC 3.41 10^6/uL (3.72-5.28) L 09/09/20 07:07 Hgb 9.0 g/dL (12.0-15.5) L 09/09/20 07:07 Hct 27.0 % (36.0-47.0) L 09/09/20 07:07 MCV 79 fl (80-97) L 09/09/20 07:07 MCH 26.3 pg (27.0-33.4) L 09/09/20 07:07 MCHC 33.2 g/dL (32.0-36.0) 09/09/20 07:07 RDW 22.9 % (11.5-14.0) H 09/09/20 07:07 Plt Count 159 10^3/uL (150-450) 09/09/20 07:07 Lymph % (Auto) 14.1 % (13-45) 09/08/20 13:28 [place] % (Auto) 7.8 % (3-13) 09/08/20 13:28 Eos % (Auto) 0.2 % (0-6) 09/08/20 13:28 Baso % (Auto) 0.5 % (0-2) 09/08/20 13:28 Absolute Neuts (auto) 10.0 10^3/uL (1.7-8.2) H 09/08/20 13:28 Absolute Lymphs (auto) 1.8 10^3/uL (0.5-4.7) 09/08/20 13:28 Absolute Monos (auto) 1.0 10^3/uL (0.1-1.4) 09/08/20 13:28 Absolute Eos (auto) 0.0 10^3/uL (0.0-0.6) 09/08/20 13:28 Absolute Basos (auto) 0.1 10^3/uL (0.0-0.2) 09/08/20 13:28 Seg Neutrophils % 77.4 % (42-78) 09/08/20 13:28 Sodium 136.9 mmol/L (137-145) L 09/07/20 08:42 Potassium 3.9 mmol/L (3.6-5.0) 09/07/20 08:42 Chloride 107 mmol/L (98-107) 09/07/20 08:42 Carbon Dioxide 21 mmol/L (22-30) L 09/07/20 08:42 Anion Gap 9 (5-19) 09/07/20 08:42 BUN 6 mg/dL (7-20) L 09/07/20 08:42 Creatinine 0.52 mg/dL (0.52-1.25) 09/07/20 08:42 Est GFR ( Amer) > 60 (>60) 09/07/20 08:42 Est GFR (MDRD) Non-Af > 60 (>60) 09/07/20 08:42 Glucose 95 mg/dL (75-110) 09/07/20 08:42 Uric Acid 4.4 mg/dL (2.5-6.2) 09/07/20 08:42 Calcium 8.9 mg/dL (8.4-10.2) 09/07/20 08:42 Total Bilirubin 0.4 mg/dL (0.2-1.3) 09/07/20 08:42 Direct Bilirubin 0.2 mg/dL (0.0-0.4) 09/07/20 08:42 Neonat Total Bilirubin Not Reportable 09/07/20 08:42 Neonat Direct Bilirubin Not Reportable 09/07/20 08:42 Neonat Indirect Bili Not Reportable 09/07/20 08:42 AST 20 U/L (14-36) 09/07/20 08:42 ALT 13 U/L (<35) 09/07/20 08:42 Alkaline Phosphatase 105 U/L (38-126) 09/07/20 08:42 Lactate Dehydrogenase 154 U/L (120-246) 09/07/20 08:42 Total Protein 6.2 g/dL (6.3-8.2) L 09/07/20 08:42 Albumin 3.1 g/dL (3.5-5.0) L 09/07/20 08:42 Urine Color BETTY 09/05/20 20:55 Urine Appearance CLOUDY 09/05/20 20:55 Urine pH 5.0 (5.0-9.0) 09/05/20 20:55 Ur Specific [place] 1.031 09/05/20 20:55 Urine Protein 100 mg/dL (NEGATIVE) H 09/05/20 20:55 Urine Glucose (UA) NEGATIVE mg/dL (NEGATIVE) 09/05/20 20:55 Urine Ketones TRACE mg/dL (NEGATIVE) H 09/05/20 20:55 Urine Blood NEGATIVE (NEGATIVE) 09/05/20 20:55 Urine Nitrite NEGATIVE (NEGATIVE) 09/05/20 20:55 Urine Bilirubin NEGATIVE (NEGATIVE) 09/05/20 20:55 Urine Urobilinogen NEGATIVE mg/dL (<2.0) 09/05/20 20:55 Ur Leukocyte Esterase LARGE (NEGATIVE) H 09/05/20 20:55 Urine WBC (Auto) 56 /HPF 09/05/20 20:55 Urine RBC (Auto) 19 /HPF 09/05/20 20:55 Urine Bacteria (Auto) 1+ /HPF 09/05/20 20:55 Squamous Epi Cells Auto 23 /HPF 09/05/20 20:55 U Non-Squamous Epis Auto 1 /HPF 09/05/20 20:55 Calcium Oxalate Cr Auto MODERATE /HPF 09/05/20 20:55 Urine Mucus (Auto) MANY /LPF 09/05/20 20:55 Urine Creatinine 415.6 mg/dL (16-327) H 09/05/20 20:55 Protein/Creatinin Ratio 0.0 mg/mg (0.0-0.2) 09/05/20 20:55 Urine Total Protein 20.5 mg/dL (<12) H 09/05/20 20:55 Urine Ascorbic Acid NEGATIVE (NEGATIVE) 09/05/20 20:55 Urine Opiates Screen NEGATIVE 09/05/20 20:55 Urine Methadone Screen NEGATIVE 09/05/20 20:55 Ur Barbiturates Screen NEGATIVE 09/05/20 20:55 Ur Phencyclidine Scrn NEGATIVE 09/05/20 20:55 Ur Amphetamines Screen NEGATIVE 09/05/20 20:55 U Benzodiazepines Scrn NEGATIVE 09/05/20 20:55 Urine Cocaine Screen NEGATIVE 09/05/20 20:55 U Marijuana (THC) Screen NEGATIVE 09/05/20 20:55 RPR NONREACTIVE (NONREACTIVE) 09/05/20 20:56 Blood Type O NEGATIVE 09/09/20 07:07 Antibody Screen NEGATIVE 09/05/20 20:56 Screen NEGATIVE 09/09/20 07:07 Plan Health Concerns: watch BP, iron rich foods Plan of Treatment: d/c home, f/up with [facility] in one week for a BP check Time Spent: Less than 30 Minutes
[2020-09-10 11:55] VITALS: BP 133/80
== END 2020-09-10 13:40 | disposition home or self-care (01) | DRG 807 ==
LOC: LR 20:26 → 2S 09-08 04:49
PROVIDERS: ADMIT Obstetrics & Gynecology; ATTEND Obstetrics & Gynecology
PROC: 10907ZC Drainage of Amniotic Fluid, Therapeutic from Products of Conception, Via Natural or Artificial Opening (ICD-10-PCS; 2020-09-07)
PROC: 10E0XZZ Delivery of Products of Conception, External Approach (ICD-10-PCS; principal; 2020-09-08)
PROC: 0UQMXZZ Repair Vulva, External Approach (ICD-10-PCS; 2020-09-08)
PROC: 3E033VJ Introduction of Other Hormone into Peripheral Vein, Percutaneous Approach (ICD-10-PCS; 2020-09-08)
PROC: 3E0234Z Introduction of Serum, Toxoid and Vaccine into Muscle, Percutaneous Approach (ICD-10-PCS; 2020-09-09)
DX: O10.02 Pre-existing essential hypertension complicating childbirth (principal); Z37.0 Single live birth; O26.893 Other specified pregnancy related conditions, third trimester; O99.013 Anemia complicating pregnancy, third trimester; D64.9 Anemia, unspecified; O99.824 Streptococcus B carrier state complicating childbirth; O71.82 Other specified trauma to perineum and vulva; Z67.41 Type O blood, Rh negative; Z79.899 Other long term (current) drug therapy; Z88.8 Allergy status to other drugs, medicaments and biological substances; Z3A.38 38 weeks gestation of pregnancy
CPT/HCPCS: 1967; 36415; 80053; 80307; 81001; 82570; 83615; 84156; 84550; 85025; 85027; 85461; 86592; 86850; 86900; 86901; 94760; J0360; J2405; J2540; J2550; J2590; J2790; J2795; J3010; J3490